=== PATIENT | male | born 1990 | race Two or more races ===

== ENCOUNTER → 2019-06-11 | Outpatient (CLI) | payer SELFPAY ==
[~2019-06-11] MED LIST: IOHEXOL 180 MG/ML 10 ML VIAL. ONE; methylPREDNISolone ACETATE 40 MG/ML VIAL. ONE; methylPREDNISolone ACETATE 80 MG/ML VIAL. ONE
--- NOTE | 2019-06-12 02:38 | PAIN ---
DATE OF SERVICE: 06/11/2019 INITIAL CONSULTATION FOR PAIN CLINIC CHIEF COMPLAINT: Low back and left lower extremity pain. HISTORY OF PRESENT ILLNESS: This is a 29-year-old male who presents with history of pain since about 05/29, so about 2 weeks. He was lifting an item at home, reports he bent down and lifted the item up and twisted to his left side and had some significant pain in the low back and the left leg immediately. The patient reports he has been unable to bear weight more than about 3 minutes on his feet since that time. He did have an MRI scan performed dated 06/09/2019 showing L5-S1, eziy-vw-xnzrxyke disk desiccation with broad posterior broad-based posterior disk bulge and superimposed broad-based left paracentral subarticular zone disk protrusion which effaces and impinges and mildly displaces the left S1 nerve root. L4-L5 shows fqyrdeai-wy-ifxgyw right and syymhdwb-eo-eqvsfr left facet arthrosis as well. The patient reports pain is worse with walking and standing, even for more than a few minutes, he has to sit and rest. The patient reports it is constant, becoming more sharp and shooting into the lower extremity, posterior gluteus, posterior thigh, posterior calf, some of the lateral thigh as well on the left side. The patient reports it is 10 on a scale of 10 at its disability rating from family home responsibilities, 10 with recreation, 10 with social activity, occupation and sexual behavior, 3 with self-care and 0 with life support activities. The patient has tried meloxicam and has been doing some stretching on his own, no formal physical therapies. He does have some chiropractic which he feels has been helpful, but only mildly. The patient reports no complete loss of motor function, but significant fatigability has been awakening him from sleep only very rarely. He feels much better with lying down or sitting and it does affect his ability to walk. He is not using any assistive devices. No bowel or bladder incontinence as well. PAST MEDICAL HISTORY: Hepatitis A and cigarette smoking. PREVIOUS SURGERY: No previous surgery. CURRENT MEDICATIONS: Include meloxicam only. ALLERGIES: The patient has no known drug allergies. FAMILY HISTORY: Significant for cancer in the patient's mother. SOCIAL HISTORY: The patient drinks alcohol once or twice a week, does use electronic cigarettes for about the last 10 years and does smoke marijuana once or twice a week. 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 REVIEW OF SYSTEMS: The patient's review of systems shows positive for those items mentioned in history of present illness. All systems reviewed and otherwise negative. It is complete, full and well documented on the patient's chart. PHYSICAL EXAMINATION: VITAL SIGNS: The patient's blood pressure is 142/74, pulse 68, respirations 16, temperature 97.9 degrees Fahrenheit, height is 5 feet 10 inches and weight is 188 pounds. GENERAL: The patient is awake, alert, oriented, appropriate, very pleasant demeanor. HEENT: Shows normocephalic, atraumatic. Extraocular movements are intact and symmetrical. Oral cavity: Mucous membranes moist and pink. Dentition is intact. NECK: Shows anterior throat supple. CHEST: Shows normal on inspection. Breath sounds clear bilaterally. HEART: Shows S1, S2 clear. ABDOMEN: Soft, nontender, nondistended. BACK: Shows spine grossly in the midline. Normal appearing thoracic kyphosis and lumbar lordotic curvature. Lumbar paraspinous muscle shows symmetrical on inspection, with palpation shows some moderate tenderness diffusely bilaterally going diffusely without significant radiation. The patient does show good rotation and motion of lumbar spine, both laterally as well as extension and flexion without significant pain reported. The patient shows no tenderness over the spinous processes, sacrum or sacroiliac regions. EXTREMITIES: Lower extremities show deep tendon reflexes at 2+ in the patellar, 1+ tendo-calcaneus tendons. Motor exam is strong with approximately 4 on a scale of 5 with left foot dorsiflexion, extension of 5/5 on the right, quadriceps and hamstring flexion 4/5 left, 5/5 right as well. Straight leg raise is significantly positive at about 20 degrees leg raise with pain radiating into the left lateral thigh and posterior thigh as well as across the low back, right side is negative. Gaenslen's and Sree's maneuvers are grossly negative as well. The patient is able to stand, but is very slow to get from a seated to a standing position, is visibly favoring his left lower extremity standing on his right side, ambulating with significant limp and favoring gait, favoring the left lower extremity as well. SKIN: Shows warm and dry, good turgor. No edema. No sores, rashes or bruising. IMPRESSION: 1. This is a 29-year-old male with approximate 2-week history of increasing pain, low back, left lower extremity in a radicular fashion. 2. MRI scan of lumbar spine as noted. PLAN: Options were discussed with the patient including conservative medical managements, physical therapies and interventional techniques. He would like to pursue interventional techniques. We discussed a lumbar epidural steroid injection using description as well as anatomical models to describe the procedure. Risks were discussed including but not limited to bleeding, infection, possibility of epidural hematoma, subsequent neurological compromise, dural puncture, headaches, spinal cord and/or nerve damage, side effects of steroid medication and poor results regarding pain control. The patient understands and wished to proceed. The patient will return to clinic in approximately 2 weeks for followup. He was counseled on his return appointment, activity level and side effects to be aware of. DIAGNOSES: Lumbar radiculopathy with lumbar degenerative disk disease with lumbar herniated disk. PROCEDURE: Lumbar epidural steroid injection, translaminar approach at L5-S1 level using C-arm fluoroscopic guidance under sterile prep and drape using local anesthetic. MEDICATIONS INJECTED: A total of 120 mg Depo-Medrol plus 10 mL of preservative-free normal saline and 2 mL of contrast. CONDITION AT DISCHARGE: Stable. The patient tolerated the procedure well, had no complications. PEPE GARCIA MD DR: MARIA DEL CARMEN/shreyas JOB#: [id number] / [id number]
== END ==
LOC: PNCL 13:16
PROVIDERS: ATTEND Anesthesiology
DX: M51.16 Intervertebral disc disorders with radiculopathy, lumbar region (principal); F17.210 Nicotine dependence, cigarettes, uncomplicated
CPT/HCPCS: 62323; J1030; J1040; Q9965